=== PATIENT | female | born 1960 | race Caucasian/White ===

== ENCOUNTER 2021-11-14 17:19 | Emergency (ER) | payer MEDICAID ==
[~2021-11-14] VITALS: Ht 170.2 cm; Wt 83.9 kg
[2021-11-14 17:19] VITALS: BP_SYST 125
--- NOTE | 2021-11-14 17:19 | NUR ---
BROUGHT BACK TO BED #8 AND TRIAGED. REPORT GIVEN TO LUC
--- NOTE | 2021-11-14 17:30 | NUR ---
Pt. came in with concern of small flat superficial bumps to back of the head for 3 weeks and concern that she woke up friday am with black eye and no reason or injury of cause, pt. states she had tried to get into see PCP and was unable so went to urgent care today and was told to use special shampoo for bumps to back of the head, then rec'd a call back from her PCP that said she should come to ER for labs and CT scan
--- NOTE | 2021-11-14 17:32 | NUR ---
ER at bedside examining patient.
[2021-11-14 18:30] LABS: ANION GAP 10 (5-15); CALCIUM 9.6 mg/dL (8.4-11.0); CHLORIDE 103 mmol/L (98-107); CREATININE 0.99 mg/dL (0.55-1.30); GLUCOSE 111 mg/dL (70-99); POTASSIUM 3.9 mmol/L (3.5-5.1); SODIUM SERUM 140 mmol/L (136-145); UREA NITROGEN, BLOOD 17 mg/dL (8-21)
[2021-11-14 18:31] LABS: BASOPHILS # (AUTO) 0.1 K/uL (0.0-0.2); BASOPHILS % (AUTO) 1.1 % (0.0-2.0); EOSINOPHILS # (AUTO) 0.2 K/uL (0.0-0.4); GFR AFRICAN AMERICAN 74 mL/min (>90); HEMATOCRIT 40.1 % (36-48); HEMOGLOBIN 13.6 g/dL (12.0-16.0); LYMPHOCYTES # (AUTO) 2.7 K/uL (1.0-5.5); MEAN CORPUSCULAR HEMOGLOBIN 31 pg (27-31); MEAN CORPUSCULAR HGB CONC 34 % (32-36); MEAN CORPUSCULAR VOLUME 92 fL (79.0-98.0); MONOCYTES # (AUTO) 0.4 K/uL (0.0-1.0); MONOCYTES % (AUTO) 5.7 % (1.7-9.3); NEUTROPHILS # (AUTO) 3.7 K/uL (1.8-7.7); NEUTROPHILS % (AUTO) 52.2 % (40.0-70.0); PLATELET COUNT (AUTO) 275 K/uL (130-430); RED BLOOD CELL COUNT(AUTO) 4.35 MIL/uL (4.2-6.2); RED CELL DISTRIBUTION WIDTH 12.8 % (9.0-15.0)
[2021-11-14 18:32] LABS: PROTHROMBIN TIME 10.2 SECS (9.5-12.5)
[2021-11-14 18:34] LABS: ALANINE AMINOTRANSFERASE 24 U/L (12-78); ALBUMIN 4.3 g/dL (3.4-4.8); ASPARTATE AMINOTRANSFERASE 23 U/L (10-37); TOTAL BILIRUBIN 0.2 mg/dL (0.0-1.0)
[2021-11-14 18:43] LABS: C-REACTIVE PROTEIN QUANT < 0.2 mg/dL (0-0.5)
[2021-11-14 19:04] LABS: FREE T4 (FREE THYROXINE) 0.9 ng/dl (0.8-1.5); THYROID STIMULATING HORMONE 1.42 uIu/mL (0.36-3.74)
[2021-11-14 19:14] LABS: ERYTHROCYTE SEDIMENTATION RATE 4 MM/HR (0-20)
[2021-11-14] MEDS ORDERED: CLIN-22 PO (19:41)
--- NOTE | 2021-11-14 20:10 | NUR ---
Patient given written and verbal discharge instructions and verbalizes understanding. ER MD Benitez discussed with patient the results and treatment provided. Patient in stable condition. ID arm band removed. Rx of Clindamycin HCL sent to pharmacy of choice. Patient educated on pain management and to follow up with PMD. Opportunity for questions provided and answered. Medication side effect fact sheet provided.
[2021-11-14 20:43] VITALS: BP_SYST 125
== END 2021-11-14 20:42 | disposition home or self-care (01) ==
LOC: SED 17:19
DX: L73.9 Follicular disorder, unspecified (principal)
CPT/HCPCS: 36415; 70450-TC; 76376; 80053; 84439; 84443; 85025; 85610-TC; 85651-TC; 85730-TC; 86140; 99284